=== PATIENT | female | born 1955 | race Caucasian/White ===

== ENCOUNTER 2024-06-11 15:57 | Emergency (ER) | payer OTHER, MEDICARE, SELFPAY ==
[2024-06-11 16:07] VITALS: BP 107/79; PULSE 88; TEMP 36.6; O2SAT 98; BMI 27.1
--- NOTE | 2024-06-11 16:10 | XR_ITS ---
The [address] [address] Patient Name: HEMANT LAU MRN: [id number] date: 1955 Sex: F Assigned Patient Location: ER Current Patient Location: ED.MAIN Accession/Order Number: [id number] Exam Date: 06/11/2024 16:15 Report Date: 06/11/2024 16:44 At the request of: DENNISE HANNA Procedure: XR wrist RT min 3V EXAM: XR wrist RT min 3V HISTORY: Fall COMPARISON: None. TECHNIQUE: 3 views the right wrist were obtained. FINDINGS: There is no evidence of an acute fracture or dislocation. Ulnar minus variance is present. The joint spaces are relatively intact throughout. Diffuse osteopenia is noted. The soft tissues appear unremarkable. XR/XR wrist RT min 3V IMPRESSION: No acute fracture or dislocation. The joint spaces are intact throughout. Electronically authenticated by: SUDHA KNOWLES Date: 06/11/2024 16:44
--- NOTE | 2024-06-11 16:11 | ED.GENADUL1 ---
HPI HPI - General Adult General Chief complaint: Extremity Injury, Upper Stated complaint: BWC - Upper Extremity Injury Time Seen by Provider: 06/11/24 16:03 Source: patient Mode of arrival: walk-in Limitations: no limitations History of Present Illness HPI narrative: Patient is a 69-year-old female who presents to the emergency department from occupational health for evaluation of a work-related injury. 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 She reports mild injuries to the legs and elbow but states she has no other areas of pain at this time. No head injury or loss of consciousness. She is ambulatory. She is right-hand dominant. She reports most of her pain over the right distal radius. Related Data Home Medications ?Medication ?Instructions ?Recorded ?Confirmed tamoxifen 20 mg tablet 20 mg PO DAILY 06/11/24 06/11/24 venlafaxine 37.5 mg 37.5 mg PO DAILY 06/11/24 06/11/24 capsule,extended release 24 hr Previous Rx's ?Medication ?Instructions ?Recorded hydrocodone 5 mg-acetaminophen 325 1 tab PO Q6H PRN pain 2 days #8 06/11/24 mg tablet tabs Allergies Allergy/AdvReac Type Severity Reaction Status Date / Time cephalexin (From Keflex) AdvReac Severe Rash Verified 06/11/24 16:07 meperidine (From Demerol) AdvReac Severe Vomiting Verified 06/11/24 16:07 prochlorperazine (From AdvReac Severe Anxiety Verified 06/11/24 16:07 Compazine) promethazine (From Phenergan) AdvReac Severe Shakiness Verified 06/11/24 16:07 Opioid HPI Opioid Management Most Recent Opioid Data: Last Pain Scale 8 06/11/24 16:14 06/11/24 Review of Systems ROS Constitutional Denies: fever or chills Ears, nose, mouth, and throat Denies: throat pain or neck pain Respiratory Denies: shortness of breath Gastrointestinal Denies: nausea or vomiting Musculoskeletal Reports: extremity pain, joint pain and limited range of motion; Denies: back pain, neck pain or extremity swelling Integumentary/Breast Denies: rash Neurological Denies: numbness in extremities or weakness in extremities Hematologic/Lymphatic Denies: easy bruising or easy bleeding PFSH PFSH Social History Little interest or pleasure in doing things: not at all Feeling down, depressed, or hopeless: not at all Exam Narrative Exam Narrative: Gen.: Awake, alert, in no distress Head: Normocephalic, atraumatic ENT: Moist mucous membranes Respiratory: No respiratory distress Extremities: Moves extremities equally, 2+ right radial pulse with diffuse tenderness of the right distal radius. No appreciable swelling, obvious deformity. Normal insurance examining clerk strength in the right hand with no tenderness or swelling of the right hand. No proximal forearm tenderness or elbow tenderness of the right upper extremity. Psych: Normal mood and affect Neuro: No focal neuro deficit Skin: Warm, dry, intact Constitutional Vital Signs, click to edit/add: Last Vital Signs Temp 97.9 F 06/11/24 16:07 Pulse 88 06/11/24 16:07 Resp 18 06/11/24 16:07 BP 107/79 06/11/24 16:07 Pulse Ox 98 06/11/24 16:07 O2 Del Method Room Air 06/11/24 16:07 Course Vital Signs Vital signs: Vital Signs Temperature 97.9 F 06/11/24 16:07 Pulse Rate 88 06/11/24 16:07 Respiratory Rate 18 06/11/24 16:07 Blood Pressure 107/79 06/11/24 16:07 Pulse Oximetry 98 06/11/24 16:07 Oxygen Delivery Method Room Air 06/11/24 16:07 Temperature 97.9 F 06/11/24 16:07 Pulse Rate 88 06/11/24 16:07 Respiratory Rate 18 06/11/24 16:07 Blood Pressure 107/79 06/11/24 16:07 Pulse Oximetry 98 06/11/24 16:07 Oxygen Delivery Method Room Air 06/11/24 16:07 Medical Decision Making MDM Narrative Medical decision making narrative: X-rays reviewed by the radiologist no evidence of acute process, patient discharged in a wrist splint and remains neurovascularly intact. A short course of analgesics were prescribed. Rest, ice, elevate. Return to the ER if symptoms change or worsen, follow-up with occupational health. Patient was provided with resources for industrial health follow-up SHARED APC VISIT, PHYSICIAN ATTESTATION: [id number] I performed a substantive part of the MDM during the patient?s E/M visit. I personally evaluated and examined the patient. I personally made or approved the documented management plan and acknowledge its risk of complications. Medical Records Medical records reviewed: Yes I reviewed the patient's medical records Imaging Data XR wrist: Attestation: I have reviewed the pertinent imaging results. Radiologist's impression: ITS Impressions Wrist X-Ray 06/11/24 16:10 IMPRESSION: No acute fracture or dislocation. The joint spaces are intact throughout. Electronically authenticated by: SUDHA KNOWLES Date: 06/11/2024 16:44 Discharge Plan Discharge Chief Complaint: Extremity Injury, Upper Clinical Impression: Contusion of right wrist Patient Disposition: Home, Self-Care Time of Disposition Decision: 16:54 Condition: Good Prescriptions / Home Meds: New hydrocodone-acetaminophen 5-325 mg tablet 1 tab PO Q6H PRN (Reason: pain) 2 Days Qty: 8 0RF Rx Instructions: M25.531 No Action tamoxifen 20 mg tablet 20 mg PO DAILY venlafaxine 37.5 mg capsule,extended release 24hr 37.5 mg PO DAILY Print Language: Monegasque Instructions: Wrist Injury (ED) Referrals: [facility] [Outside] - 1 week
== END 2024-06-11 17:02 | disposition home or self-care (01) ==
PROVIDERS: Emergency Provider Emergency Medicine; PCP Internal Medicine
DX: S60.211A Contusion of right wrist, initial encounter (principal); W18.09XA Striking against other object with subsequent fall, initial encounter
CPT/HCPCS: 73110; 99283

== ENCOUNTER 2024-08-14 09:41 | Outpatient (OUT) | payer MEDICARE, OTHER, SELFPAY ==
[2024-08-14 10:07] LABS: Basophils Percent Auto 0.5 % (0.2-2.0); Eosinophils Absolute Auto 0.2 10^3/uL (0.0-0.7); Eosinophils Percent Auto 2.6 % (0.9-7.0); Hematocrit 36.5 % (36.0-48.0); Hemoglobin 12.1 g/dL (12.0-16.0); Immature Granulocytes Abs Auto 0.02 10^3/uL (0.00-0.03); Immature Granulocytes Pct Auto 0.2 % (0.0-0.5); Lymphocytes Absolute Auto 2.2 10^3/uL (1.2-3.8); Lymphocytes Percent Auto 26.2 % (20.5-60.0); Mean Corpuscular HGB Conc 33.2 g/dL (29.9-35.2); Mean Corpuscular Hemoglobin 29.7 pg (26.7-34.0); Mean Corpuscular Volume 89.5 fL (81.0-99.0); Mean Platelet Volume 11.2 fL (9.5-13.5); Monocytes Absolute Auto 0.5 10^3/uL (0.3-0.8); Monocytes Percent Auto 5.4 % (1.7-12.0); Neutrophils Absolute Auto 5.5 10^3/uL (1.4-6.5); Neutrophils Percent Auto 65.1 % (43.0-75.0); Platelet Count 222 10^3/uL (150-450); Red Blood Count 4.08 10^6/uL (4.20-5.40); Red Cell Distribution Width 13.2 % (11.0-15.0); White Blood Count 8.5 10^3/uL (4.0-11.0)
[2024-08-14 10:45] LABS: Alanine Aminotransferase 19 U/L (14-59); Albumin Globulin Ratio 0.9; Alkaline Phosphatase 51 U/L (46-116); Anion Gap 12.1; Aspartate Amino Transferase 24 U/L (15-37); BUN Creatinine Ratio 8.8; Bilirubin Total 0.6 mg/dL (0.2-1.0); Calcium 8.7 mg/dL (8.5-10.1); Carbon Dioxide 29.9 mmol/L (21.0-32.0); Chloride 104 mmol/L (98-107); Chol HDL Ratio 2.6; Cholesterol 171 mg/dL (<=200); Estimated GFR (African America >60 (>=60 mL/min/1.73m^2); Estimated GFR (Non-African Ame >60 (>=60 mL/min/1.73m^2); Globulin 3.5 g/dL; Glucose 85 mg/dL (74-106); HDL Cholesterol 66 mg/dL (40-60); Sodium 142 mmol/L (136-145); Total Protein 6.5 g/dL (6.4-8.2); Triglycerides 117 mg/dL (<=150); Uric Acid 4.2 mg/dL (2.6-6.0); VLDL CHOLESTEROL 23.4 mg/dL
== END 2024-08-14 09:42 | disposition home or self-care (01) ==
LOC: LAB 09:46
PROVIDERS: PCP Internal Medicine
DX: E55.9 Vitamin D deficiency, unspecified (principal); Z79.899 Other long term (current) drug therapy; Z13.220 Encounter for screening for lipoid disorders
CPT/HCPCS: 36415; 80053; 80061; 82306; 84550; 85025

== ENCOUNTER 2024-09-16 23:40 | Emergency (ER) | payer MEDICARE, OTHER, SELFPAY ==
[2024-09-16 23:44] VITALS: BP 154/89; PULSE 81; TEMP 36.8; O2SAT 98; BMI 26.1
--- NOTE | 2024-09-16 23:56 | XR_ITS ---
The [place] [id number] Patient Name: HEMANT LAU MRN: [id number] date: 1955 Sex: F Assigned Patient Location: ER Current Patient Location: Accession/Order Number: [id number] Exam Date: 09/16/2024 23:59 Report Date: 09/17/2024 02:40 At the request of: SULMA JONES Procedure: XR hand LT min 3V XR hand LT min 3V: HISTORY: middle finger injury middle finger injury COMPARISON: None available. TECHNIQUE: 3 views of the left hand are submitted. FINDINGS: BONES/JOINT SPACES: There is no acute fracture or dislocation. There are mild to moderate hypertrophic changes throughout the distal interphalangeal joints 2 through 5 consistent with a degree of degenerative osteoarthritis. SOFT TISSUES: The soft tissues are unremarkable. XR/XR hand LT min 3V IMPRESSION: No definitive acute fracture in the left hand. Electronically authenticated by: BOGDAN TOURE Date: 09/17/2024 02:40
--- NOTE | 2024-09-16 23:56 | XR_ITS ---
The [address] [address] Patient Name: HEMANT LAU MRN: [id number] date: 1955 Sex: F Assigned Patient Location: ER Current Patient Location: ER Accession/Order Number: [id number] Exam Date: 09/16/2024 23:59 Report Date: 09/17/2024 01:43 At the request of: SULMA JONES Procedure: XR wrist RT min 3V XR wrist RT min 3V: HISTORY: fall, pain fall, pain COMPARISON: 2023. TECHNIQUE: 3 views of the right wrist are submitted. FINDINGS: BONES/JOINT SPACES: There is no acute fracture or dislocation. The joint spaces are well-maintained. SOFT TISSUES: The soft tissues are unremarkable. XR/XR wrist RT min 3V IMPRESSION: Unremarkable plain film examination without acute fracture or dislocation. Electronically authenticated by: BOGDAN TOURE Date: 09/17/2024 01:43
--- NOTE | 2024-09-16 23:56 | XR_ITS ---
The [address] [address] Patient Name: HEMANT LAU MRN: [id number] date: 1955 Sex: F Assigned Patient Location: ER Current Patient Location: Accession/Order Number: [id number] Exam Date: 09/16/2024 23:59 Report Date: 09/17/2024 01:41 At the request of: SULMA JONES Procedure: XR elbow RT min 3V XR elbow RT min 3V: HISTORY: fall, elbow pain fall, elbow pain COMPARISON: None available. TECHNIQUE: 3 views of the right elbow are submitted. FINDINGS: BONES/JOINT SPACES: There is no acute fracture or dislocation. The joint spaces are well-maintained. SOFT TISSUES: There is no joint effusion on the lateral projection. XR/XR elbow RT min 3V IMPRESSION: Unremarkable plain film examination without acute fracture or dislocation. Electronically authenticated by: BOGDAN TOURE Date: 09/17/2024 01:41
--- NOTE | 2024-09-16 23:56 | XR_ITS ---
The [address] [address] Patient Name: HEMANT LAU MRN: [id number] date: 1955 Sex: F Assigned Patient Location: ER Current Patient Location: ER Accession/Order Number: [id number] Exam Date: 09/16/2024 23:59 Report Date: 09/17/2024 01:40 At the request of: SULMA JONES Procedure: XR ankle RT min 3V XR ankle RT min 3V: HISTORY: fall, pain fall, pain COMPARISON: None available. TECHNIQUE: 3 views of the right ankle are submitted. FINDINGS: BONES/JOINT SPACES: There is no acute fracture or dislocation. There is a smoothly marginated osseous fragment adjacent to the tip of the fibula which may be secondary to old trauma. The joint spaces are well-maintained. SOFT TISSUES: Mild soft tissue swelling is present. XR/XR ankle RT min 3V IMPRESSION: No definitive acute fracture of the right ankle. Electronically authenticated by: BOGDAN TOURE Date: 09/17/2024 01:40
--- NOTE | 2024-09-17 00:06 | ED.GENADUL1 ---
HPI HPI - General Adult General Chief complaint: Fall Stated complaint: FALL Time Seen by Provider: 09/16/24 23:50 Source: patient Mode of arrival: walk-in Limitations: no limitations History of Present Illness HPI narrative: Patient states she fell down her basement steps today around 3 PM. She had hiking boots on and there was no on them. She slipped on the staircase and fell down the last 3-4 steps. She landed on her buttocks when she fell. She denies injury or pain to the head and neck. She complains of pain mainly in the right ankle where she had a trimalleolar fracture 12 years ago. Hardware was removed 4 years later. She also complains of pain in the left middle finger, right wrist and right elbow. She took a couple Aleve this afternoon for the pain. Related Data Home Medications ?Medication ?Instructions ?Recorded ?Confirmed tamoxifen 20 mg tablet 20 mg PO DAILY 06/11/24 06/11/24 venlafaxine 37.5 mg 37.5 mg PO DAILY 06/11/24 06/11/24 capsule,extended release 24 hr Previous Rx's ?Medication ?Instructions ?Recorded hydrocodone 5 mg-acetaminophen 325 1 tab PO Q6H PRN pain 2 days #8 06/11/24 mg tablet tabs Allergies Allergy/AdvReac Type Severity Reaction Status Date / Time cephalexin (From Keflex) AdvReac Severe Rash Verified 09/16/24 23:44 meperidine (From Demerol) AdvReac Severe Vomiting Verified 09/16/24 23:44 prochlorperazine (From AdvReac Severe Anxiety Verified 09/16/24 23:44 Compazine) promethazine (From Phenergan) AdvReac Severe Shakiness Verified 09/16/24 23:44 Opioid HPI Opioid Management Most Recent Opioid Data: Last Pain Scale 8 06/11/24 16:14 06/11/24 Review of Systems ROS Status of ROS 10 or more systems reviewed and unremarkable except as noted in history and below [facility] Social History Little interest or pleasure in doing things: not at all Feeling down, depressed, or hopeless: not at all Exam Narrative Exam Narrative: Patient does not appear apparently distressed. Vital signs are stable and are as documented. Head and neck are atraumatic. There is a questionable small area of effusion in the right elbow but no obvious swelling or deformity is noted and it has full range of motion. Examination of the distal right upper extremity does not show obvious deformity. She is able to extend and flex the wrist and move all the digits in her right hand freely. No bruising is noted. Examination of the left hand reveals some diffuse tenderness distally of the middle finger but no obvious deformity is present. Examination of the right ankle reveals evidence of previous surgery but there is no underlying bony crepitus or soft tissue swelling. Pulses are intact distally. She is diffusely tender around the ankle. The rest of the bony survey of her extremities is negative. Constitutional Vital Signs, click to edit/add: Last Vital Signs Temp 98.3 F 09/16/24 23:44 Pulse 81 09/16/24 23:44 Resp 18 09/16/24 23:44 BP 154/89 H 09/16/24 23:44 Pulse Ox 98 09/16/24 23:44 O2 Del Method Room Air 09/16/24 23:44 Course Vital Signs Vital signs: Vital Signs Temperature 98.3 F 09/16/24 23:44 Pulse Rate 81 09/16/24 23:44 Respiratory Rate 18 09/16/24 23:44 Blood Pressure 154/89 H 09/16/24 23:44 Pulse Oximetry 98 09/16/24 23:44 Oxygen Delivery Method Room Air 09/16/24 23:44 Temperature 98.3 F 09/16/24 23:44 Pulse Rate 81 09/16/24 23:44 Respiratory Rate 18 09/16/24 23:44 Blood Pressure 154/89 H 09/16/24 23:44 Pulse Oximetry 98 09/16/24 23:44 Oxygen Delivery Method Room Air 09/16/24 23:44 Medical Decision Making MDM Narrative Medical decision making narrative: X-rays were obtained of the left hand, right elbow, right wrist and right ankle. No fracture is identified. Patient has a neoprene brace for the ankle which she plans to use at home. Supportive care was advised. She may return anytime for worsening symptoms. Discharge Plan Discharge Chief Complaint: Fall Clinical Impression: Right ankle sprain Qualifiers: Encounter type: initial encounter Involved ligament of ankle: unspecified ligament Qualified Code(s): S93.401A - Sprain of unspecified ligament of right ankle, initial encounter Contusion of right wrist Qualifiers: Encounter type: initial encounter Qualified Code(s): S60.211A - Contusion of right wrist, initial encounter Contusion of right elbow Qualifiers: Encounter type: initial encounter Qualified Code(s): S50.01XA - Contusion of right elbow, initial encounter Injury of left middle finger Qualifiers: Encounter type: initial encounter Qualified Code(s): S69.92XA - Unspecified injury of left wrist, hand and finger(s), initial encounter Patient Disposition: Home, Self-Care Time of Disposition Decision: 02:15 Condition: Good Mode of Transportation: Private Vehicle Prescriptions / Home Meds: No Action tamoxifen 20 mg tablet 20 mg PO DAILY venlafaxine 37.5 mg capsule,extended release 24hr 37.5 mg PO DAILY hydrocodone-acetaminophen 5-325 mg tablet 1 tab PO Q6H PRN (Reason: pain) 2 Days Qty: 8 0RF Rx Instructions: M25.531 Print Language: Occitan Instructions: Ankle Sprain (ED), Wrist Injury (ED) Additional Instructions: Wear ankle brace for comfort as needed for the next few days. Tylenol, ibuprofen for pain as needed. Return anytime for worsening symptoms. Referrals: [facility] [Primary Care Provider] - 1 week
--- NOTE | 2024-09-17 02:29 | PC.NURSE ---
i gave this patient verbal and written discharge orders, and this patient voices yes to understanding these. at time of discharge this patient voices no concerns and shows no signs of distress
== END 2024-09-17 02:31 | disposition home or self-care (01) ==
PROVIDERS: Emergency Provider Emergency Medicine; PCP Internal Medicine
DX: S93.401A Sprain of unspecified ligament of right ankle, initial encounter (principal); S60.211A Contusion of right wrist, initial encounter; S50.01XA Contusion of right elbow, initial encounter; S69.92XA Unspecified injury of left wrist, hand and finger(s), initial encounter; W10.8XXA Fall (on) (from) other stairs and steps, initial encounter
CPT/HCPCS: 73080; 73110; 73130; 73610; 99283

== ENCOUNTER 2025-08-01 09:22 | Outpatient (OUT) | payer MEDICARE, OTHER, SELFPAY ==
[2025-08-01 09:43] LABS: Hematocrit 38.6 % (36.0-48.0); Hemoglobin 13.1 g/dL (12.0-16.0); Immature Granulocytes Abs Auto 0.03 10^3/uL (0.00-0.03); Immature Granulocytes Pct Auto 0.3 % (0.0-0.5); Lymphocytes Absolute Auto 2.3 10^3/uL (1.2-3.8); Mean Corpuscular HGB Conc 33.9 g/dL (29.9-35.2); Mean Corpuscular Hemoglobin 30.8 pg (26.7-34.0); Mean Corpuscular Volume 90.8 fL (81.0-99.0); Platelet Count 196 10^3/uL (150-450); Red Blood Count 4.25 10^6/uL (4.20-5.40); White Blood Count 11.0 10^3/uL (4.0-11.0)
[2025-08-01 10:28] LABS: Alanine Aminotransferase 22 U/L (14-59); Albumin Globulin Ratio 0.8; Albumin Level 3.2 g/dL (3.4-5.0); Alkaline Phosphatase 53 U/L (46-116); Anion Gap 12.2; Aspartate Amino Transferase 37 U/L (15-37); Blood Urea Nitrogen 6.0 mg/dL (7.0-18.0); Calcium 8.9 mg/dL (8.5-10.1); Carbon Dioxide 28.3 mmol/L (21.0-32.0); Chloride 105 mmol/L (98-107); Cholesterol 190 mg/dL (<=200); Estimated GFR (African America >60 (>=60 mL/min/1.73m^2); Estimated GFR (Non-African Ame >60 (>=60 mL/min/1.73m^2); Globulin 4.0 g/dL; Glucose 86 mg/dL (74-106); HDL Cholesterol 68 mg/dL (40-60); Potassium 4.5 mmol/L (3.5-5.1); Sodium 141 mmol/L (136-145); Thyroid Stimulating Hormone 2.095 uIU/mL (0.358-3.740); Total Protein 7.2 g/dL (6.4-8.2); Triglycerides 120 mg/dL (<=150); VLDL CHOLESTEROL 24.0 mg/dL
== END 2025-08-01 09:23 | disposition home or self-care (01) ==
LOC: LAB 09:25
PROVIDERS: PCP Internal Medicine; Visit Provider Nurse Practitioner Adult Health
DX: E78.00 Pure hypercholesterolemia, unspecified (principal); J45.20 Mild intermittent asthma, uncomplicated; K21.9 Gastro-esophageal reflux disease without esophagitis; E01.0 Iodine-deficiency related diffuse (endemic) goiter; Z79.899 Other long term (current) drug therapy
CPT/HCPCS: 36415; 80053; 80061; 84443; 85025